=== PATIENT | female | born 1975 | race Caucasian/White ===

== ENCOUNTER 2016-03-29 12:45 | Inpatient (IN) | payer MEDICAID, OTHER ==
[~2016-03-29] VITALS: Ht 162.6 cm; Wt 81.4 kg
[~2016-03-29 12:45] MED LIST: LEVO25TA9 PO; OLAN10TA3 PO; OMEG1CAP6 PO; VITAD1000 PO
[2016-03-29] MEDS ORDERED: DiphenhydrAMINE HCL 50 MG/ML VIAL IM ONE (14:15)
[2016-03-29] MEDS ORDERED: HALOPERIDOL LACTATE 5 MG/ML VIAL IM ONE (14:15)
[2016-03-29] MEDS ORDERED: LORazepam 2 MG/ML VIAL IM ONE (14:15)
[2016-03-29] MEDS ORDERED: OLANZAPINE PAMOATE 405 MG/2.7 ML VIAL IM ONE (14:30)
[2016-03-29] MEDS ORDERED: MAGNESIUM HYDROXIDE SUSPENSION 30 ML UDCUP PO PRN (14:30)
[2016-03-29] MEDS ORDERED: LOPERAMIDE HCL 2 MG CAPSULE PO PRN (14:30)
[2016-03-29] MEDS ORDERED: TUBERCULIN, PURIFIED PROTEIN DERIVATIVE 5 TU/0.1 ML SYG ID ONE (14:30)
[2016-03-29] MEDS ORDERED: GuaiFENesin/D-METHORPHAN [SUGAR-FREE] 200-20MG/10 ML SYRUP UDCUP PO PRN (14:30)
[2016-03-29] MEDS ORDERED: ZOLPIDEM TARTRATE 10 MG TABLET PO PRN (14:30)
[2016-03-29] MEDS ORDERED: MAG HYDROX/AL HYDROX/SIMETH ES 30 ML SUSPENSION UDCUP PO PRN (14:30)
[2016-03-29] MEDS ORDERED: PROMETHAZINE HCL 25 MG TABLET PO PRN (14:30)
[2016-03-29] MEDS ORDERED: HydrOXYzine PAMOATE 50 MG CAPSULE PO PRN (14:30)
[2016-03-29] MEDS ORDERED: ACETAMINOPHEN 325 MG TABLET PO PRN (14:30)
[2016-03-29] MEDS ORDERED: OLANZapine 5 MG RAPDIS TABLET PO PRN (14:30)
[2016-03-29] MEDS ORDERED: LORazepam 2 MG TABLET PO PRN (14:30)
[2016-03-29 14:46] LABS: BASOPHILS % (AUTO) 0.6 % (0.0-2.0); EOSINOPHILS % (AUTO) 0.2 % (1.0-6.0); HEMATOCRIT 43.2 % (36-46); HEMOGLOBIN 14.3 g/dL (12.0-16.0); LYMPHOCYTES # (AUTO) 1.5 K/uL (1.0-4.8); LYMPHOCYTES % (AUTO) 19.8 % (22.0-44.0); MEAN CORPUSCULAR HEMOGLOBIN 28.5 pg (26.0-34.0); MEAN CORPUSCULAR VOLUME 86 fL (80-100); MONOCYTES # (AUTO) 0.5 K/uL (0.1-1.0); MONOCYTES % (AUTO) 7.2 % (2.0-9.0); NEUTROPHILS # (AUTO) 5.4 K/uL (1.8-7.7); NEUTROPHILS % (AUTO) 72.2 % (40.0-70.0); PLATELET COUNT (AUTO) 213 K/uL (150-450); RED BLOOD CELL COUNT(AUTO) 5.01 MIL/uL (4.00-5.20); RED CELL DISTRIBUTION WIDTH 13.8 % (11.5-14.5); WHITE BLOOD COUNT (AUTO) 7.4 K/uL (4.5-11.0)
[2016-03-29 14:56] LABS: ANION GAP 13 mmol/L (8-16); CALCIUM, TOTAL 9.1 mg/dL (8.8-10.5); CARBON DIOXIDE 25 mmol/L (22-29); CHLORIDE 103 mmol/L (98-107); CREATININE 0.96 mg/dL (0.60-1.30); GLOMERULAR FILTR. RATE CALC > 60 mL/min (>60); POTASSIUM 3.1 mmol/L (3.5-5.1); SODIUM SERUM 141 mmol/L (136-145); UREA NITROGEN, BLOOD 10 mg/dL (7-18)
[2016-03-29 15:02] LABS: ALANINE AMINOTRANSFERASE 29 U/L (12-78); ASPARTATE AMINOTRANSFERASE 19 U/L (15-37); BILIRUBIN,TOTAL 0.6 mg/dL (0.1-1.0); TOTAL PROTEIN, SERUM 7.6 g/dL (6.4-8.2)
[2016-03-29] MEDS ORDERED: POTASSIUM CHLORIDE 20 MEQ ER TABLET PO ONE (15:30)
[2016-03-29] MEDS: THIAMINE HCL 100 MG TABLET PO SCH (17:57)
[2016-03-29 18:12] VITALS: BP 110/73
[2016-03-29] MEDS ORDERED: INFLUENZA VIRUS VACCINE QVS 2016-17 (3YR+)/PF 60 MCG/0.5 ML SYRINGE IM ONE (18:30)
[2016-03-29] MEDS: OLANZapine 5 MG RAPDIS TABLET PO SCH (20:11)
[2016-03-30] MEDS: FOLIC ACID 1 MG TABLET PO SCH (08:18)
[2016-03-30] MEDS: MULTIVITAMINS WITH MINERALS, THERAPEUTIC TABLET PO SCH (08:18)
[2016-03-30] MEDS: THIAMINE HCL 100 MG TABLET PO SCH ×2 (08:19→16:23)
[2016-03-30 08:46] VITALS: BP 100/65
[2016-03-30 16:18] VITALS: BP 112/72
[2016-03-30] MEDS: OLANZapine 5 MG RAPDIS TABLET PO SCH (20:33)
[2016-03-31 08:29] VITALS: BP 100/71
[2016-03-31] MEDS: THIAMINE HCL 100 MG TABLET PO SCH ×2 (09:23→16:13)
[2016-03-31] MEDS: MULTIVITAMINS WITH MINERALS, THERAPEUTIC TABLET PO SCH (09:23)
[2016-03-31] MEDS: FOLIC ACID 1 MG TABLET PO SCH (09:23)
[2016-03-31] MEDS: OLANZapine 5 MG RAPDIS TABLET PO SCH (20:15)
[2016-04-01 08:37] VITALS: BP 104/67
[2016-04-01] MEDS: MULTIVITAMINS WITH MINERALS, THERAPEUTIC TABLET PO SCH ×2 (09:00→09:12)
[2016-04-01] MEDS: FOLIC ACID 1 MG TABLET PO SCH ×2 (09:00→09:12)
[2016-04-01] MEDS: THIAMINE HCL 100 MG TABLET PO SCH ×3 (09:00→16:30)
[2016-04-01] MEDS: OLANZapine 5 MG RAPDIS TABLET PO SCH (21:00)
[2016-04-02 08:46] VITALS: BP 118/72
[2016-04-02] MEDS: MULTIVITAMINS WITH MINERALS, THERAPEUTIC TABLET PO SCH (09:00)
[2016-04-02] MEDS: THIAMINE HCL 100 MG TABLET PO SCH ×2 (09:00→17:00)
[2016-04-02] MEDS: FOLIC ACID 1 MG TABLET PO SCH (09:00)
[2016-04-02 16:32] VITALS: BP 118/70
[2016-04-02] MEDS ORDERED: OLAN10TA22 PO (16:52)
[2016-04-02] MEDS ORDERED: OLANZapine 10 MG RAPDIS TABLET PO SCH (21:00)
[2016-04-03] MEDS ORDERED: OLAN10TA6 PO (07:58)
[2016-04-03] MEDS: MULTIVITAMINS WITH MINERALS, THERAPEUTIC TABLET PO SCH (08:01)
[2016-04-03] MEDS: FOLIC ACID 1 MG TABLET PO SCH (08:01)
[2016-04-03] MEDS: THIAMINE HCL 100 MG TABLET PO SCH (08:01)
[2016-04-03 08:43] VITALS: BP 110/63
[2016-04-26] MEDS ORDERED: OLANZAPINE PAMOATE 405 MG/2.7 ML VIAL IM SCH (09:00)
== END 2016-04-03 10:22 | disposition home or self-care (01) | DRG 750 ==
LOC: EMS 12:46 → EEVIPCON 12:46 → B3A 16:14
PROVIDERS: ADMIT Psychiatry & Neurology Psychiatry; ATTEND Psychiatry & Neurology Psychiatry
PROC: GZ51ZZZ Individual Psychotherapy, Behavioral (ICD-10-PCS; principal; 2016-04-03)
DX: F20.0 Paranoid schizophrenia (principal); E55.9 Vitamin D deficiency, unspecified; E03.9 Hypothyroidism, unspecified; F17.200 Nicotine dependence, unspecified, uncomplicated; E87.6 Hypokalemia; Z28.21 Immunization not carried out because of patient refusal; Z91.19 Patient's noncompliance with other medical treatment and regimen; Z79.899 Other long term (current) drug therapy
CPT/HCPCS: 96372; 99285; G0480; J1200; J1630; J2060